=== PATIENT | female | born 1955 | race Caucasian/White ===

== ENCOUNTER 2018-07-18 06:33 | Observation (INO) ==
[2018-07-18] MEDS ORDERED: *HR* FentaNYL (PF) 100 MCG/2 ML VIAL IVP ONE ×2 (06:51→09:00)
[2018-07-18] MEDS ORDERED: Ondansetron 4 MG/2 ML VIAL IVP ONE (06:51)
--- NOTE | 2018-07-18 06:58 | Emergency Department Note ---
Disposition Clinical Impression: Biliary colic Cholelithiasis Qualifiers: Cholelithiasis location: gallbladder Cholecystitis presence: with cholecystitis Cholecystitis acuity: acute Biliary obstruction: without biliary obstruction Qualified Code(s): K80.00 - Calculus of gallbladder with acute cholecystitis without obstruction Disposition: Admitted As Inpatient Condition: Good Referrals: Trina Beatty MD [Primary Care Provider] - Forms: ED Satisfaction Letter, Work/School Release Time of Disposition: 09:15 General Adult HPI - General Chief complaint: ED Abdominal Pain Stated complaint: RUQ pain Time Seen by Provider: 07/18/18 06:38 Source: patient, family Mode of arrival: ambulatory Limitations: no limitations Nursing Notes Reviewed: Yes Vital Signs Reviewed: Yes - History of Present Illness HPI Narrative: Patient is a 63-year-old female that presents the emergency department due to pain in the right upper quadrant. Patient states this is been ongoing for pro ximally one week. Patient states that the pain is been intermittent. Patient states that it does seem to be made worse after she eats. Patient states that she has had some nausea but no vomiting. Patient states that she has dry heaves. Patient denies any diarrhea. Patient denies any blood in her stool or any urinary symptoms. Patient does state that she is having significant pain. Patient states that her pain is a 9-1/2 out of 10. Patient states that she has never had any previous abdominal surgeries. Patient states that she still has her gallbladder. Patient denies any fevers or chills. Pain Scale: 9 - Related Data Allergies Allergy/AdvReac Type Severity Reaction Status Date / Time silver sulfadiazine Allergy Blister Verified 09/19/15 09:32 [From Silvadene] Sulfa (Sulfonamide Allergy Rash Verified 09/19/15 09:33 Antibiotics) All systems ED: reviewed and negative except as stated. Constitutional: Denies: fever Cardiovascular: Reports: other (Chest tightness) Respiratory: Denies: dyspnea Gastrointestinal: Reports: abdominal pain, nausea. Denies: vomiting, diarrhea Genitourinary: Denies: urgency, dysuria, frequency, hematuria Past Medical History - Past Medical History Medical history: Reports: COPD, hypertension, thyroid disease Psychiatric history: Reports: no psych history - Social History Smoking Status: Current every day smoker Smokeless Tobacco Status: No Alcohol use: Reports: none Drug use: Reports: none Physical Exam - General Limitations: no limitations General appearance: alert, in no apparent distress - Head Head exam: atraumatic, normocephalic - Eye Eye exam: Present: normal appearance, EOMI - Neck Neck exam: Present: normal inspection, full ROM, trachea midline - Cardiovascular Cardiovascular exam: Present: regular rate, normal rhythm, normal heart sounds, +S1, +S2 - Abdominal Exam Abdominal exam: Present: soft, tenderness, normal bowel sounds, Cantu's sign Abdominal tenderness: Present: RUQ, epigastrium, moderate - Neurological Exam Neurological exam: Present: alert, oriented X3 - Psychiatric Psychiatric exam: Present: normal affect, normal mood - Skin Skin exam: Present: warm, dry, intact Course Vital Signs Temperature 98.1 F 07/18/18 06:34 Pulse Rate 70 07/18/18 06:34 Respiratory Rate 16 07/18/18 06:34 Blood Pressure 189/99 07/18/18 06:34 O2 Sat by Pulse Oximetry 98 07/18/18 06:34 Temperature 98.1 F 07/18/18 06:34 Pulse Rate 55 07/18/18 08:15 Respiratory Rate 16 07/18/18 08:15 Blood Pressure 124/81 07/18/18 08:15 O2 Sat by Pulse Oximetry 95 07/18/18 08:15 Oxygen Delivery Oxygen Delivery Room Air Medical Decision Making - [facility] Narrative Medical decision making narrative: Due the patient presented to the emergency department with right upper quadrant pain that is made worse by eating there is a high concern for gallbladder pathology. We will obtain basic laboratory testing as well as a right upper quadrant ultrasound to evaluate the gallbladder. Patient did report some chest tightness we will also obtain a EKG and a troponin. Patient's laboratory testing is unremarkable. EKG did not show any acute findings. The Other Right Upper Quadrant Did Show Evidence of Cholelithiasis with Questionable Pericholecystic Fluid and Equivocal Findings for Acute Cholecystitis. I Did Call and spoke with the on-call surgeon Dr. Cruz and she recommended that the patient be put on cefoxitin and be admitted to her service. Patient be started on the antibiotics here in the emergency department as well as provided additional analgesics and will be admitted to Dr. Cruz's service. Patient be admitted to the hospital this time for further evaluation and management. - Medical Records Medical records reviewed: Yes I reviewed the patient's medical records. - Lab Data Lab results reviewed: Yes I reviewed the patient's lab results. Result diagrams: 07/18/18 07:05 07/18/18 07:05 Lab Results 07/18/18 07/18/18 07/18/18 Range/Units 07:05 07:05 07:08 WBC 10.7 (4.3-11.1) K/mcL RBC 4.69 (3.82-4.97) M/mcL Hgb 14.4 (11.5-15.4) g/dL Hct 42.5 (35.3-44.9) % MCV 90.6 (83.0-100.0) fL MCH 30.7 (28.0-33.3) pg MCHC 33.9 (31.6-35.5) g/dL RDW 12.4 (11.5-14.5) % Plt Count 162 (140-400) K/mcL MPV 11.7 (9.4-12.4) fL Immature Gran % 0.3 (0-4) % Seg Neutrophils % 79.7 % Lymphocytes % 13.0 % Monocytes % 6.0 % Eosinophils % 0.7 % Basophils % 0.3 % Neutrophils # 8.6 (1.6-8.9) K/mcL Lymphocytes # 1.4 (0.6-4.6) K/mcL Monocytes # 0.6 (0.0-1.3) K/mcL Eosinophils # 0.1 (0.0-0.6) K/mcL Basophils # 0.0 (0.0-0.2) K/mcL Sodium 136 (136-145) mEq/L Potassium 3.6 (3.5-5.1) mEq/L Chloride 101 (98-107) mEq/L Carbon Dioxide 26 (23-29) mEq/L BUN 15 (8-23) mg/dL Creatinine 0.67 (0.60-1.20) mg/dL Est GFR ( Amer) > 60 (> 60) Est GFR (Non-Af Amer) > 60 (> 60) BUN/Creatinine Ratio 22 (6-26) Glucose 122 H (70-105) mg/dL Calculated Osmolality 284 (280-300) Calcium 10.1 (8.6-10.3) mg/dL Total Bilirubin 0.8 (0.3-1.0) mg/dL Direct Bilirubin 0.1 (0.0-0.2) mg/dL Indirect Bilirubin 0.7 (0.0-1.2) mg/dL AST 14 (13-39) Units/L ALT 14 (7-52) Units/L Alkaline Phosphatase 57 (34-104) Units/L Troponin I < 0.03 (< 0.04) ng/mL Serum Total Protein 7.0 (6.4-8.9) g/dL Albumin 4.5 (3.5-5.7) g/dL Globulin 2.5 (2.4-3.5) g/dL Albumin/Globulin Ratio 1.8 (1.1-2.2) Lipase 66 (11-82) Units/L Urine Color Yellow (Yellow) Urine Clarity Clear (Clear) Urine pH 6.0 (5.0-8.0) pH Units Ur Specific [place] 1.021 (1.010-1.025) Urine Protein Negative (Neg-Trace) mg/dL Urine Glucose (UA) Normal (Normal) mg/dL Urine Ketones Negative (Negative) mg/dL Urine Blood Negative (Negative) Urine Nitrite Negative (Negative) Urine Bilirubin Negative (Negative) Urine Urobilinogen Normal (Normal) mg/dL Ur Leukocyte Esterase Small H (Negative) Urine Microscopic RBC 3-5 H (0-3) per hpf Urine Microscopic WBC 3-5 H (0-3) per hpf Ur Squamous Epith Cells Many H (None-Few) per lpf Ur Renal Epithelial Cell Few (None-Few) per hpf Urine Bacteria None Seen (None-Few) per hpf Hyaline Casts None Seen (None-Few) per lpf Ur Culture Indicated? NO. A (NO) - Radiology Data Radiology results reviewed: Yes I reviewed the patient's radiology results. Gallbladder Ultrasound 07/18/18 06:53 IMPRESSION: Cholelithiasis with mild gallbladder wall thickening and possible pericholecystic fluid. There is a negative sonographic Cantu sign. These findings are equivocal for acute cholecystitis. Clinical correlation is advised. No evidence of biliary dilatation. D/ / 07/18/2018 08:33:37 Fantasma Tate MD / bcarter Interpreting Provider: Fantasma Tate MD - EKG Data EKG #1 EKG attestation: Yes I reviewed and interpreted this EKG. EKG results narrative: EKG shows a sinus rhythm at a rate of 55 bpm, VA interval of 163, QRS duration of 135, QTC of 474. There is no evidence of STEMI on EKG. There is evidence of a right bundle branch block. EKG was compared to previous on 09/07/14.
[2018-07-18 07:12] LABS: Basophils % 0.3 %; Eosinophils # 0.1 K/mcL (0.0-0.6); Eosinophils % 0.7 %; Hematocrit 42.5 % (35.3-44.9); Hemoglobin 14.4 g/dL (11.5-15.4); Immature Granulocytes % 0.3 % (0-4); Lymphocytes # 1.4 K/mcL (0.6-4.6); Mean Corpuscular HGB Conc 33.9 g/dL (31.6-35.5); Mean Corpuscular Hemoglobin 30.7 pg (28.0-33.3); Mean Corpuscular Volume 90.6 fL (83.0-100.0); Mean Platelet Volume 11.7 fL (9.4-12.4); Monocytes # 0.6 K/mcL (0.0-1.3); Neutrophils # 8.6 K/mcL (1.6-8.9); Platelet Count 162 K/mcL (140-400); Red Blood Count 4.69 M/mcL (3.82-4.97); Red Cell Distribution Width 12.4 % (11.5-14.5); Segmented Neutrophils % 79.7 %
--- NOTE | 2018-07-18 07:13 | Emergency Department Note ---
Disposition Clinical Impression: Biliary colic Disposition: Still a Patient Referrals: Trina Beatty MD [Primary Care Provider] - Forms: ED Satisfaction Letter, Work/School Release General Adult HPI - General Chief complaint: ED Abdominal Pain Stated complaint: RUQ pain Time Seen by Provider: 07/18/18 06:38 Source: patient, family Mode of arrival: ambulatory Limitations: no limitations - History of Present Illness HPI Narrative: ED ATTESTATION NOTE: I examined this patient and my medical decision-making was reviewed with the Resident Physician/LEAD JAVASCRIPT DEVELOPER/PA/Student. I have personally performed a face to face ev aluation on this patient & I agree with the documented findings, disposition and treatment plan as described except to the extent set forth below. Patient was seen with emergency medicine resident, Joesph Lovelace please see copy of his note for details of this encounter Briefly: 63-year-old female 3 days of postprandial right upper quadrant epigastric pain she does have positive Cantu sign cell a hypertensive but afebrile last vomiting episode was earlier today denies fevers chills or dysuria. Patient still has her gallbladder. Patient will get IV fentanyl IV fluids anti-medics screening labs and a right upper quadrant ultrasound. Her last meal was greater than 8 hours ago. Concerns about biliary colic versus possible acute cholecystitis. Disposition pending Pain Scale: 9 - Related Data Allergies Allergy/AdvReac Type Severity Reaction Status Date / Time silver sulfadiazine Allergy Blister Verified 09/19/15 09:32 [From Silvadene] Sulfa (Sulfonamide Allergy Rash Verified 09/19/15 09:33 Antibiotics) Constitutional: Denies: fever Cardiovascular: Reports: other (Chest tightness) Respiratory: Denies: dyspnea Gastrointestinal: Reports: abdominal pain, nausea. Denies: vomiting, diarrhea Genitourinary: Denies: urgency, dysuria, frequency, hematuria Past Medical History - Past Medical History Medical history: Reports: COPD, hypertension, thyroid disease Psychiatric history: Reports: no psych history - Social History Smoking Status: Current every day smoker Smokeless Tobacco Status: No Alcohol use: Reports: none Drug use: Reports: none Physical Exam - General Limitations: no limitations General appearance: alert, in no apparent distress Course Vital Signs Temperature 98.1 F 07/18/18 06:34 Pulse Rate 70 07/18/18 06:34 Respiratory Rate 16 07/18/18 06:34 Blood Pressure 189/99 07/18/18 06:34 O2 Sat by Pulse Oximetry 98 07/18/18 06:34 Temperature 98.1 F 07/18/18 06:34 Pulse Rate 70 07/18/18 06:34 Respiratory Rate 16 07/18/18 06:34 Blood Pressure 189/99 07/18/18 06:34 O2 Sat by Pulse Oximetry 98 07/18/18 06:34 Oxygen Delivery Oxygen Delivery Room Air
[2018-07-18 07:24] LABS: Bilirubin,Urine Negative (Negative); Blood,Urine Negative (Negative); Clarity,Urine Clear (Clear); Color,Urine Yellow (Yellow); Glucose,Urine (UA) Normal (Normal); Ketones,Urine Negative (Negative); Leukocyte Esterase,Urine Small (Negative); Nitrite,Urine Negative (Negative); Protein,Urine Negative (Neg-Trace); Specific Gravity,Urine 1.021 (1.010-1.025); Urobilinogen,Urine Normal (Normal)
[2018-07-18 07:25] LABS: Bacteria,Urine None Seen per hpf (None-Few); Hyaline Casts,Urine None Seen per lpf (None-Few); Squamous Epithelial Cell,Urine Many per lpf (None-Few)
[2018-07-18 07:37] LABS: Troponin I < 0.03 ng/mL (< 0.04)
[2018-07-18 07:40] LABS: Alanine Aminotransferase 14 Units/L (7-52); Albumin 4.5 g/dL (3.5-5.7); Albumin/Globulin Ratio 1.8 (1.1-2.2); Alkaline Phosphatase 57 Units/L (34-104); Aspartate Amino Transferase 14 Units/L (13-39); BUN/Creatinine Ratio 22 (6-26); Bilirubin,Direct 0.1 mg/dL (0.0-0.2); Bilirubin,Indirect 0.7 mg/dL (0.0-1.2); Bilirubin,Total 0.8 mg/dL (0.3-1.0); Blood Urea Nitrogen 15 mg/dL (8-23); Calcium 10.1 mg/dL (8.6-10.3); Carbon Dioxide 26 mEq/L (23-29); Chloride 101 mEq/L (98-107); Globulin 2.5 g/dL (2.4-3.5); Glucose 122 mg/dL (70-105); Lipase 66 Units/L (11-82); Osmolality,Calculated 284 (280-300); Potassium 3.6 mEq/L (3.5-5.1); Sodium 136 mEq/L (136-145); eGFR For Non-African Americans > 60 (> 60)
[2018-07-18 08:05] LABS: Renal Epithelial Cells,Urine Few per hpf (None-Few)
[2018-07-18] MEDS ORDERED: cefOXitin 2,000 MG in Water for inj. (sterile) 20 ML 20 ML IVP ONE (09:04)
[2018-07-18] MEDS ORDERED: OXYCODONE Oral CONC 10 MG/0.5 ML ORAL.SYG SL PRN (11:21)
[2018-07-18] MEDS ORDERED: Ondansetron 4 MG/2 ML VIAL IVP PRN (11:21)
[2018-07-18] MEDS ORDERED: *HR* Promethazine 25 MG/ML VIAL IVP PRN (11:21)
--- NOTE | 2018-07-18 11:38 | General Surg History&Physical ---
<ClintMeghan Glenda - Last Filed: 07/18/18 12:04> Date of Encounter: 07/18/18 Time of Encounter: 11:38 Assessment and Plan (1) Cholelithiasis Current Visit: Yes Status: Acute The assessment and plan as outlined above was discussed with the patient and/or family members who expressed understanding and agreement. All questions were answered. Ultrasound of the gallbladder on 07/18/2018 noted cholelithiasis with mild gallbladder wall thickening and possible Ricky cholecystic fluid. Negative sonographic Cantu sign. Findings felt policy services representative of acute cholecystitis. Common bile duct was normal at 5 mm Patient is recommended to undergo a laparoscopic cholecystectomy, possible open, possible intraoperative cholangiogram. Recommendations, risks, and benefits have been reviewed with the patient and a signed consent is placed on the hard chart. We will plan for surgical intervention in the next 24 to 48 hours Plan: NPO except meds IV fluids IV antibiotics supportive care and discomfort management G.I. and DVT prophylaxis repeat a.m. labs serial abdominal exams Qualifiers: Cholelithiasis location: gallbladder Cholecystitis presence: with cholecystitis Cholecystitis acuity: acute Biliary obstruction: without biliary obstruction Qualified Code(s): K80.00 - Calculus of gallbladder with acute cholecystitis without obstruction (2) COPD (chronic obstructive pulmonary disease) Current Visit: Yes Status: Acute The assessment and plan as outlined above was discussed with the patient and/or family members who expressed understanding and agreement. All questions were answered. Scheduled duonebs Begin incentive spirometry now Smoking cessation Qualifiers: COPD type: unspecified COPD Qualified Code(s): J44.9 - Chronic obstructive pulmonary disease, unspecified (3) HTN, goal below 130/80 Current Visit: Yes Status: Acute The assessment and plan as outlined above was discussed with the patient and/or family members who expressed understanding and agreement. All questions were answered. Continue home po meds History of Present Illness Chief complaint: right uper abdominal pain HPI: Ms. Duffy is a 63 year old female who presented on 07/18/2018 with complaints of abrupt onset of right upper quadrant pain. She reports this is the 3rd episode in 3 weeks. She states the abdominal pain is always abrupt onset, is sharp, stabbing, and aching. She relates that as a 10 out of 10. She associates the discomfort with fatty foods. She reports that she at "[employer]" last night and pizza the day previous and then began having the abdominal pain and nausea without vomiting. She denies fever, chills, headache, dizz iness, lightheadedness, changes in bowel habits, black, bloody, or tarry stool, urinary signs or symptoms. She endorses associated chest tightness that only happens when she has abdominal discomfort and nausea as described. She denies any alleviating factors. Past Med Surg Social Fam HX - Past Medical History Source: patient Medical history: COPD (Does not use in an inhaler), hypertension, thyroid dise ase Psychiatric history: no psych history - Past Surgical History Additional surgical history: vocal cord polypectomy, DNC - Social History Smoking Status: Current every day smoker Packs per day: One pack per day for 45 years Smokeless Tobacco Status: No Alcohol use: none Drug use: none Occupational status: employed ([employer]) Current living situation: Home - Independent Activity Level: Independent ambulation Recent Out of Country Travel Within the Last 8 Weeks: No Exposure or Possible Exposure to Illness During Travel: No Medications and Allergies Ibuprofen [Ibu] 800 mg PO Q8H PRN 07/18/18 [History] Levothyroxine [Synthroid] 125 mcg PO QAM 07/18/18 [History] Lisinopril/Hydrochlorothiazide [Zestoretic 20-25 mg Tablet] 1 tab PO DAILY 07/18/18 [History] Oxybutynin Chloride [Ditropan Xl] 5 mg PO DAILY 07/18/18 [History] RX: Atenolol 100 mg PO DAILY 07/18/18 [History] Allergy/AdvReac Type Severity Reaction Status Date / Time silver sulfadiazine Allergy Blister Verified 07/18/18 09:42 [From Silvadene] Sulfa (Sulfonamide Allergy Rash Verified 07/18/18 09:42 Antibiotics) Review of Systems All systems PM: reviewed and no additional remarkable complaints except as stated All systems PM: The remainder of the systems were reviewed and are negative General Surgery Exam Initial Vital Signs Temp Pulse Resp BP Pulse Ox 98.1 F 70 16 189/99 98 07/18/18 06:34 07/18/18 06:34 07/18/18 06:34 07/18/18 06:34 07/18/18 06:34 VITAL SIGNS: Reviewed. See [facility] GENERAL: In no apparent distress. HEENT: Normocephalic, atraumatic, pupils are equal and reactive, extraocular mo tions intact, oropharynx is pink and moist, there is no neck adenopathy or JVD noted. CHEST/RESPIRATORY: The thorax is free from signs of trauma. Lung sounds: decreased, normal respiratory effort CARDIAC: Regular rate and rhythm. Normal S1 and S2, without murmurs, gallops, or rubs. VASCULAR: No Edema. 2+ peripheral pulses. ABDOMEN: soft, right upper quadrant tenderness, active bowel sounds MUSCULOSKELETAL: Good range of motion of all major joints. Extremities without clubbing, cyanosis or edema. NEUROLOGIC EXAM: Alert and oriented x 3. Speech normal. Follows commands. PSYCHIATRIC: Mood normal. SKIN: No rash or lesions. Results - Labs 07/18/18 07:05 07/18/18 07:05 Abnormal lab results Glucose 122 mg/dL (70-105) H 07/18/18 07:05 Ur Leukocyte Esterase Small (Negative) H 07/18/18 07:08 Urine Microscopic RBC 3-5 per hpf (0-3) H 07/18/18 07:08 Urine Microscopic WBC 3-5 per hpf (0-3) H 07/18/18 07:08 Ur Squamous Epith Cells Many per lpf (None-Few) H 07/18/18 07:08 Ur Culture Indicated? NO. (NO) A 07/18/18 07:08 Diabetes panel 07/18/18 Range/Units 07:05 Sodium 136 (136-145) mEq/L Potassium 3.6 (3.5-5.1) mEq/L Chloride 101 (98-107) mEq/L Carbon Dioxide 26 (23-29) mEq/L BUN 15 (8-23) mg/dL Creatinine 0.67 (0.60-1.20) mg/dL Glucose 122 H (70-105) mg/dL Calcium 10.1 (8.6-10.3) mg/dL AST 14 (13-39) Units/L ALT 14 (7-52) Units/L Alkaline Phosphatase 57 (34-104) Units/L Albumin 4.5 (3.5-5.7) g/dL Calcium panel 07/18/18 Range/Units 07:05 Calcium 10.1 (8.6-10.3) mg/dL Albumin 4.5 (3.5-5.7) g/dL Pituitary panel 07/18/18 Range/Units 07:05 Sodium 136 (136-145) mEq/L Potassium 3.6 (3.5-5.1) mEq/L Chloride 101 (98-107) mEq/L Carbon Dioxide 26 (23-29) mEq/L BUN 15 (8-23) mg/dL Creatinine 0.67 (0.60-1.20) mg/dL Glucose 122 H (70-105) mg/dL Calcium 10.1 (8.6-10.3) mg/dL Adrenal panel 07/18/18 Range/Units 07:05 Sodium 136 (136-145) mEq/L Potassium 3.6 (3.5-5.1) mEq/L Chloride 101 (98-107) mEq/L Carbon Dioxide 26 (23-29) mEq/L BUN 15 (8-23) mg/dL Creatinine 0.67 (0.60-1.20) mg/dL Glucose 122 H (70-105) mg/dL Calcium 10.1 (8.6-10.3) mg/dL Total Bilirubin 0.8 (0.3-1.0) mg/dL AST 14 (13-39) Units/L ALT 14 (7-52) Units/L Alkaline Phosphatase 57 (34-104) Units/L Albumin 4.5 (3.5-5.7) g/dL All other labs normal. - Imaging US - abdomen: report reviewed <Meche Cruz - Last Filed: 07/18/18 21:01> Date of Encounter: 07/18/18 Assessment and Plan (1) Cholelithiasis Current Visit: Yes Status: Acute The assessment and plan as outlined above was discussed with the patient and/or family members who expressed understanding and agreement. All questions were answered. discussed with patient the US results, labs and her PE findings. She may well have acute cholecystitis. She for sure has symptomatic cholelithiasis. Will plan laparoscopic cholecystectomy, possible cholangiograms, possible open. Risks and benefits discussed and she wishes to proceed npo at 8 am tomorrow iv antibiotics prn pain control agree with COMPOSITION INSTRUCTOR assessment and plan Qualifiers: Cholelithiasis location: gallbladder Cholecystitis presence: with cholecystitis Cholecystitis acuity: acute Biliary obstruction: without biliary obstruction Qualified Code(s): K80.00 - Calculus of gallbladder with acute cholecystitis without obstruction (2) COPD (chronic obstructive pulmonary disease) Current Visit: Yes Status: Acute The assessment and plan as outlined above was discussed with the patient and/or family members who expressed understanding and agreement. All questions were answered. Qualifiers: COPD type: unspecified COPD Qualified Code(s): J44.9 - Chronic obstructive pulmonary disease, unspecified (3) HTN, goal below 130/80 Current Visit: Yes Status: Acute The assessment and plan as outlined above was discussed with the patient and/or family members who expressed understanding and agreement. All questions were a nswered. History of Present Illness Chief complaint: right upper abdominal pain HPI: Ms. Duffy is a 63 year old female with three episodes in the last few weeks of right upper quadrant pain. She has [employer] food last night and pain began last evening. She has nausea and no emesis. No diarrhea. No fevers or chills. Pain doesnt radiate into back or shoulder. She feels better now but still has some pain. Past Med Surg Social Fam HX - Family History Mother Family Member Ethnicity: Non- Living Status: Hx Family Cancer: Yes Hx Family GI Disorders: Yes Father Family Member Ethnicity: Non- Living Status: Hx Family Cardiac Disorders: Yes Review of Systems All systems PM: reviewed and no additional remarkable complaints except as stated All systems PM: The remainder of the systems were reviewed and are negative General Surgery Exam Initial Vital Signs Temp Pulse Resp BP Pulse Ox 98.1 F 70 16 189/99 98 07/18/18 06:34 07/18/18 06:34 07/18/18 06:34 07/18/18 06:34 07/18/18 06:34 - General physical appearance well developed, well nourished, no distress - Eyes PERRL, normal ocular movement - ENT normal mucosa, normocephalic - Neck trachea midline - Respiratory normal expansion, normal respiratory effort - Cardiovascular Cardiovascular exam: Present: RRR - Abdomen Abdomen general surgery: Present: bowel sounds present, soft, tender. Absent: distended, guarding, rebound Abdominal Tenderness: Present: RUQ - Integumentary Integumentary general surgery: Present: warm and dry, no abnormal pigmentation - Neurologic Present: CN 2-12 grossly intact - Musculoskeletal Present: normal posture - Psychiatric Psychiatric general surgery: Present: A&Ox3, speech is normal Results - Labs 07/18/18 07:05 07/18/18 07:05 Abnormal lab results Glucose 122 mg/dL (70-105) H 07/18/18 07:05 POC Glucose 100 mg/dL (70-99) H 07/18/18 18:36 Ur Leukocyte Esterase Small (Negative) H 07/18/18 07:08 Urine Microscopic RBC 3-5 per hpf (0-3) H 07/18/18 07:08 Urine Microscopic WBC 3-5 per hpf (0-3) H 07/18/18 07:08 Ur Squamous Epith Cells Many per lpf (None-Few) H 07/18/18 07:08 Ur Culture Indicated? NO. (NO) A 07/18/18 07:08 Diabetes panel 07/18/18 Range/Units 07:05 Sodium 136 (136-145) mEq/L Potassium 3.6 (3.5-5.1) mEq/L Chloride 101 (98-107) mEq/L Carbon Dioxide 26 (23-29) mEq/L BUN 15 (8-23) mg/dL Creatinine 0.67 (0.60-1.20) mg/dL Glucose 122 H (70-105) mg/dL Calcium 10.1 (8.6-10.3) mg/dL AST 14 (13-39) Units/L ALT 14 (7-52) Units/L Alkaline Phosphatase 57 (34-104) Units/L Albumin 4.5 (3.5-5.7) g/dL Calcium panel 07/18/18 Range/Units 07:05 Calcium 10.1 (8.6-10.3) mg/dL Albumin 4.5 (3.5-5.7) g/dL Pituitary panel 07/18/18 Range/Units 07:05 Sodium 136 (136-145) mEq/L Potassium 3.6 (3.5-5.1) mEq/L Chloride 101 (98-107) mEq/L Carbon Dioxide 26 (23-29) mEq/L BUN 15 (8-23) mg/dL Creatinine 0.67 (0.60-1.20) mg/dL Glucose 122 H (70-105) mg/dL Calcium 10.1 (8.6-10.3) mg/dL Adrenal panel 07/18/18 Range/Units 07:05 Sodium 136 (136-145) mEq/L Potassium 3.6 (3.5-5.1) mEq/L Chloride 101 (98-107) mEq/L Carbon Dioxide 26 (23-29) mEq/L BUN 15 (8-23) mg/dL Creatinine 0.67 (0.60-1.20) mg/dL Glucose 122 H (70-105) mg/dL Calcium 10.1 (8.6-10.3) mg/dL Total Bilirubin 0.8 (0.3-1.0) mg/dL AST 14 (13-39) Units/L ALT 14 (7-52) Units/L Alkaline Phosphatase 57 (34-104) Units/L Albumin 4.5 (3.5-5.7) g/dL All other labs normal. - Imaging US - abdomen: report reviewed - Attending Attestation I have personally performed a face to face evaluation on this patient. I have reviewed and agree with the care plan. History and Exam by me shows:
[2018-07-18] MEDS: 0.9 % Sodium Chloride 1,000 ML IVC SCH ×2 (12:32→20:47)
[2018-07-18] MEDS: Piperacillin/Tazobactam 3.375 GM in 0.9 % Sodium Chloride Mini Bag 100 ML IVPB SCH ×2 (12:34→20:17)
[2018-07-18] MEDS: Pantoprazole 40 MG VIAL IVP SCH (12:35)
[2018-07-18] MEDS: OXYCODONE Oral CONC 10 MG/0.5 ML ORAL.SYG SL PRN ×2 (13:09→23:38)
--- NOTE | 2018-07-18 13:39 | Electrocardiograph Report ---
[facility] [employer] Test Date: 2018-07-18 Pat Name: Leana Duffy Department: EXAM3 Room: 3B64 Gender: F Systems Coordinator: : 1955 Requested By: Joesph Lovelace Order Number: [id number] Reading MD: Henrique Swenson Measurements Intervals [place] Rate: 55 P: 67 FL: 163 QRS: 81 QRSD: 135 T: -5 QT: 495 QTc: 474 Interpretive Statements Sinus rhythm Right bundle branch block Electronically Signed On 07-18-2018 13:38:41 EST by Henrique Swenson
[2018-07-18 13:51] LABS: Activated Partial Thrombo Time 30.2 Seconds (26.0-36.0)
[2018-07-18] MEDS: Ipratropium/Albuterol Neb 3 ML IH SCH ×3 (15:19→22:56)
--- NOTE | 2018-07-18 19:08 | Anesthesia Evaluation PreOp ---
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 HX Other Medical History: Thyroid Anesthesia History: No Prior Anesthetic Complications, Past Anesthesia Alcohol Use: none Drug use: none Medications and Allergies Atenolol 100 mg PO DAILY 07/18/18 [History] Ibuprofen [Ibu] 800 mg PO Q8H PRN 07/18/18 [History] Levothyroxine [Synthroid] 125 mcg PO QAM 07/18/18 [History] Lisinopril/Hydrochlorothiazide [Zestoretic 20-25 mg Tablet] 1 tab PO DAILY 07/18/18 [History] Oxybutynin Chloride [Ditropan Xl] 5 mg PO DAILY 07/18/18 [History] Allergy/AdvReac Type Severity Reaction Status Date / Time silver sulfadiazine Allergy Blister Verified 07/18/18 09:42 [From Silvadene] Sulfa (Sulfonamide Allergy Rash Verified 07/18/18 09:42 Antibiotics) - Meds/Allergy Pre-op Review Medications Reviewed: Yes Allergies Reviewed: Yes Beta Blockers on Current Med List: Yes Anesthesia Results - Labs 07/18/18 07:05 07/18/18 07:05 - Imaging EKG: report reviewed (Sinus rhythm Right bundle branch block) Anesthesia Exam Vital Signs/O2 Sat, Most Current Temp Pulse Resp BP Pulse Ox 99.1 F 67 16 163/78 95 07/18/18 18:37 07/18/18 18:37 07/18/18 18:37 07/18/18 18:37 07/18/18 18:37 Weight: 81 KG - BMI 29 NPO (# of Hours): NPO >8 - HEENT Mallampati: II Teeth: Edentulous Oral Opening: Greater than 3 - Cardiac Rhythm: Regular - Pulmonary Breath Sounds: bilateral Clear Respiratory Effort: Symmetrical Anesthesia Assess/Plan ASA Score: 3 Anesthetic Plan: General Monitoring Plan: Standard Monitors Recovery Plan: PACU
[2018-07-19] MEDS: Ipratropium/Albuterol Neb 3 ML IH SCH ×4 (03:52→22:25)
[2018-07-19 03:53] LABS: Basophils % 0.5 %; Eosinophils # 0.1 K/mcL (0.0-0.6); Eosinophils % 0.6 %; Hematocrit 34.8 % (35.3-44.9); Immature Granulocytes % 0.2 % (0-4); Lymphocytes # 1.7 K/mcL (0.6-4.6); Lymphocytes % 20.3 %; Mean Corpuscular HGB Conc 33.3 g/dL (31.6-35.5); Mean Corpuscular Hemoglobin 30.8 pg (28.0-33.3); Mean Corpuscular Volume 92.3 fL (83.0-100.0); Mean Platelet Volume 12.1 fL (9.4-12.4); Monocytes # 0.8 K/mcL (0.0-1.3); Monocytes % 10.2 %; Neutrophils # 5.6 K/mcL (1.6-8.9); Platelet Count 119 K/mcL (140-400); Red Blood Count 3.77 M/mcL (3.82-4.97); Red Cell Distribution Width 12.8 % (11.5-14.5); Segmented Neutrophils % 68.2 %
[2018-07-19 03:59] LABS: Hemoglobin 11.6 g/dL (11.5-15.4)
[2018-07-19 04:13] LABS: BUN/Creatinine Ratio 16 (6-26); Blood Urea Nitrogen 10 mg/dL (8-23); Calcium 8.6 mg/dL (8.6-10.3); Carbon Dioxide 29 mEq/L (23-29); Chloride 107 mEq/L (98-107); Glucose 103 mg/dL (70-105); Osmolality,Calculated 289 (280-300); Potassium 3.3 mEq/L (3.5-5.1); Sodium 140 mEq/L (136-145); eGFR For Non-African Americans > 60 (> 60)
[2018-07-19] MEDS: Piperacillin/Tazobactam 3.375 GM in 0.9 % Sodium Chloride Mini Bag 100 ML IVPB SCH ×2 (04:15→12:50)
[2018-07-19] MEDS: 0.9 % Sodium Chloride 1,000 ML IVC SCH ×3 (05:07→20:00)
[2018-07-19] MEDS: Pantoprazole 40 MG VIAL IVP SCH (09:12)
[2018-07-19] MEDS ORDERED: *HR* Propofol 200 MG/20 ML VIAL IVP ONE (16:21)
[2018-07-19] MEDS ORDERED: *HR* Rocuronium Bromide 50 MG/5 ML VIAL ONE (16:21)
[2018-07-19] MEDS ORDERED: Lidocaine -MPF 2% 2 ML VIAL ONE (16:21)
[2018-07-19] MEDS ORDERED: *HR* Midazolam HCl 2 MG/2 ML VIAL ONE (16:21)
[2018-07-19] MEDS ORDERED: Dexamethasone 4 MG/ML VIAL ONE (16:21)
[2018-07-19] MEDS ORDERED: *HR* FentaNYL (PF) 100 MCG/2 ML VIAL ONE ×2 (16:21→18:21)
[2018-07-19] MEDS ORDERED: Ondansetron 4 MG/2 ML VIAL ONE (16:21)
[2018-07-19] MEDS ORDERED: Neostigmine Methylsulfate 3 MG/3 ML SYRINGE ONE (16:22)
[2018-07-19] MEDS ORDERED: Lidocaine -MPF 4% 5 ML AMPUL ONE (16:27)
[2018-07-19] MEDS ORDERED: Isovue-300 50 ML VIAL IVP ONE (16:34)
[2018-07-19] MEDS ORDERED: *HR* Labetalol 20 MG/4 ML SYRINGE IVP PRN (16:59)
[2018-07-19] MEDS ORDERED: *HR* OxyCODONE Immed Rel 5 MG TABLET PO PRN (16:59)
[2018-07-19] MEDS ORDERED: Ketorolac 30 MG/ML VIAL ONE (17:29)
--- NOTE | 2018-07-19 18:31 | Operative Note ---
Date of procedure: 07/19/18 Pre-op diagnosis: acute cholecystitis Post-op diagnosis: same Procedure: Laparoscopic cholecystectomy Complications: none immediate Anesthesia: DEB local Surgeon: Meche Cruz Was there an critical care physician assistant present: Yes Agency Sales Representative: Katerina Hollis Estimated blood loss (cc): 40 Specimen: gallbladder and contents Condition: stable Disposition: PACU Procedure in Detail: The patient was brought into the operating suite and placed supine on the operating table. Sign-in was performed and everyone was in agreement. Anesthesia was induced and patient was endotracheally intubated by anesthesia without incident and they also placed an OG tube. The abdomen was prepped and draped in the usual sterile fashion. A timeout was performed again everyone was in agreement. A supraumbilical incision was made through the skin into the subcutaneous tissue with an 11 blade. Towel clamps were placed on either side of the umbilicus for retraction. S retractors were used to dissect down to the anterior abdominal wall linea alba fascia. A Veress needle was placed through this incision and a water drop test confirmed placement and the abdomen was insufflated. The abdomen was entered with a 5 mm 0 degree laparoscope on a 5 mm X-katie trocar. The area and entry was visualized was no bleeding and no apparent bowel injury. A 5 mm subxiphoid port was placed under direct visualization after first incising the skin with an 11 blade. A right upper quadrant subcostal position midclavicular line 5 mm port was placed under direct visualization after first incising skin with 11 blade. The laparoscope was placed in this and we exchanged the supraumbilical port for a 12 mm port under direct visualization. The last 5 mm port was placed in the right upper quadrant subcostal position anterior axillary line after first incising the skin with an 11 blade. The patient was placed in steep reverse Trendelenburg left side down position. The gallbladder was significantly inflamed and tense. 40 mL of bile was aspirated from the gallbladder with the laparoscopic aspirator. The dome of the gallbladder was grasped and retracted cephalad. The infundibulum was grasped and retracted laterally. Using the [place] we dissected out the cystic duct and cystic artery. Two 5 mm hemoclips were placed distally on the cystic duct one proximally and it was transected with curved scissors. The cystic artery wa s doubly clipped proximally, once distally and transected with curved scissors. The gallbladder was removed off the cystic plate with the Bovie. Due to the intense inflammation there was oozing at the gallbladder fossa. Any bleeding points were stopped with the Bovie. A large Surgicel was placed at the gallbladder fossa. A 19-M[place] Wilman drain was placed through the right lateralmost incision underneath the liver at the gallbladder fossa. The Wilman drain was secured to the skin with a 2-0 silk stitch. The gallbladder was placed in a laparoscopic Endo Catch bag and removed via the supraumbilical incision site. The inferior edge of the liver was bluntly retracted cephalad and the cystic plate was copiously irrigated with sterile saline. There was no bleeding or apparent bile leak from the cystic plate and the clips on the cystic artery and duct were intact. All irrigation was suctioned free from the abdomen. All insufflation was suctioned free from the abdomen and the ports re moved. The abdominal wall at the supraumbilical incision site was closed with two 0 Vicryl [id number] stitches. 30 mL of 0.5% Marcaine was injected subcutaneously at the 4 port sites. The skin at the three 5 mm port sites were closed with 4-0 Monocryl interrupted subcuticular stitches. The skin at the supraumbilical incision site was closed with a 4-0 Monocryl running subcuticular stitch. Steri-Strips were applied to all wounds. The patient was awoken in the operating suite having tolerated the procedure well and were taken to PACU in stable condition after all lap and instrument counts were correct at the end of the case.
[2018-07-19] MEDS: *HR* HYDROmorphone (PF) 1 MG/ML SYRINGE IVP PRN ×2 (18:33→18:43)
--- NOTE | 2018-07-19 19:04 | Anesthesia Evaluation Post Op ---
Date of Encounter: 07/19/18 Time of Encounter: 19:02 - Vital Signs Vital Signs: Vital Signs/O2 Sat, Most Current Temp Pulse Resp BP Pulse Ox 98.6 F 57 16 125/64 92 07/19/18 18:56 07/19/18 18:56 07/19/18 18:56 07/19/18 18:56 07/19/18 18:56 - Lungs Lungs: Clear Ascult./Percussion - Airway Airway: Non-obstructed - Cardiovascular Regular Rate - Mental Status Mental Status: Asleep with brisk response to light stimulation - Pain Pain Scale: 7 Pain Scale used: Numeric (1 - 10) - Nausea Vomiting Nausea Vomiting: Not Present - Hydration Hydration: Ice chips, Has not voided - Discharge PostOp Status: Transfer Patient to floor
[2018-07-19] MEDS ORDERED: OXYCODONE Oral CONC 10 MG/0.5 ML ORAL.SYG SL PRN (19:08)
[2018-07-19] MEDS ORDERED: Ondansetron 4 MG/2 ML VIAL IVP PRN (19:08)
[2018-07-19] MEDS ORDERED: *HR* Promethazine 25 MG/ML VIAL IVP PRN (19:08)
[2018-07-20] MEDS: *HR* OxyCODONE/APAP 5/325 TABLET PO PRN ×3 (02:44→11:52)
[2018-07-20] MEDS: Ipratropium/Albuterol Neb 3 ML IH SCH ×2 (04:22→10:50)
[2018-07-20 05:40] LABS: Basophils % 0.2 %; Hemoglobin 11.7 g/dL (11.5-15.4); Immature Granulocytes % 0.3 % (0-4); Lymphocytes % 11.6 %; Mean Corpuscular HGB Conc 33.4 g/dL (31.6-35.5); Mean Corpuscular Volume 92.8 fL (83.0-100.0); Mean Platelet Volume 11.9 fL (9.4-12.4); Monocytes # 0.8 K/mcL (0.0-1.3); Monocytes % 8.6 %; Neutrophils # 7.1 K/mcL (1.6-8.9); Platelet Count 106 K/mcL (140-400); Red Blood Count 3.77 M/mcL (3.82-4.97); Red Cell Distribution Width 12.4 % (11.5-14.5); Segmented Neutrophils % 79.3 %
[2018-07-20 06:01] LABS: Alanine Aminotransferase 30 Units/L (7-52); Albumin 3.4 g/dL (3.5-5.7); Albumin/Globulin Ratio 1.6 (1.1-2.2); Alkaline Phosphatase 50 Units/L (34-104); Aspartate Amino Transferase 29 Units/L (13-39); BUN/Creatinine Ratio 23 (6-26); Bilirubin,Direct 0.2 mg/dL (0.0-0.2); Bilirubin,Indirect 0.7 mg/dL (0.0-1.2); Bilirubin,Total 0.9 mg/dL (0.3-1.0); Blood Urea Nitrogen 12 mg/dL (8-23); Calcium 8.8 mg/dL (8.6-10.3); Carbon Dioxide 26 mEq/L (23-29); Chloride 103 mEq/L (98-107); Globulin 2.1 g/dL (2.4-3.5); Glucose 101 mg/dL (70-105); Osmolality,Calculated 280 (280-300); Potassium 3.3 mEq/L (3.5-5.1); Sodium 135 mEq/L (136-145); Total Protein 5.5 g/dL (6.4-8.9); eGFR For Non-African Americans > 60 (> 60)
[2018-07-20 06:44] VITALS: BP 131/70
[2018-07-20] MEDS: 0.9 % Sodium Chloride 1,000 ML IVC SCH (08:16)
[2018-07-20] MEDS ORDERED: Pantoprazole 40 MG VIAL IVP SCH (09:00)
[2018-07-20] MEDS ORDERED: Ibuprofen 800 MG TABLET PO ONE (10:19)
--- NOTE | 2018-07-20 10:25 | Discharge Summary ---
Date of Encounter: 07/20/18 Time of Encounter: 10:26 - Discharge Diagnosis (1) Cholelithiasis Priority: Primary Status: Resolved Qualifiers: Cholelithiasis location: gallbladder Cholecystitis presence: with cholecystitis Cholecystitis acuity: acute Biliary obstruction: without biliary obstruction Qualified Code(s): K80.00 - Calculus of gallbladder with acute cholecystitis without obstruction (2) COPD (chronic obstructive pulmonary disease) Priority: Secondary Status: Chronic Qualifiers: COPD type: unspecified COPD Qualified Code(s): J44.9 - Chronic obstructive pulmonary disease, unspecified (3) HTN, goal below 130/80 Priority: Secondary Status: Chronic General Surgery Exam Initial Vital Signs Temp Pulse Resp BP Pulse Ox 98.1 F 70 16 189/99 98 07/18/18 06:34 07/18/18 06:34 07/18/18 06:34 07/18/18 06:34 07/18/18 06:34 Vital Signs Temp Pulse Resp BP Pulse Ox 07/20/18 06:32 98.1 F 56 18 131/70 95 07/20/18 04:22 18 95 07/20/18 03:17 98.1 F 56 16 118/69 85 07/20/18 02:38 154/71 07/19/18 23:33 97.8 F 62 16 100/56 98 07/19/18 22:25 18 98 07/19/18 21:30 98.0 F 52 18 125/65 94 07/19/18 20:01 98.2 F 64 17 143/76 07/19/18 19:30 98.1 F 57 17 132/69 96 07/19/18 18:56 98.6 F 57 16 125/64 92 07/19/18 18:46 57 16 136/60 93 07/19/18 18:36 57 16 141/61 94 07/19/18 18:26 99.2 F 63 16 146/97 95 07/19/18 12:45 99.7 F H 66 17 158/78 95 07/19/18 10:53 17 98 Intake and Output 07/19/18 07/20/18 07/20/18 23:59 07:59 15:59 Output Total 210 / 210 25 / 25 20 / 20 Balance -210 / -210 -25 / -25 -20 / -20 Output: Estimated Blood Loss 40 / 40 Wound Drainage 170 / 170 20 / 20 Right Upper Abdomen 75 / 75 20 Other: # Voids 1 Blood Glucose* 121 94 VITAL SIGNS: Reviewed. See [facility] GENERAL: In no apparent distress. HEENT: Normocephalic, atraumatic, pupils are equal and reactive, extraocular motions intact, oropharynx is pink and moist, there is no neck adenopathy or JVD noted. CHEST/RESPIRATORY: The thorax is free from signs of trauma. Lung sounds: clear to auscultation, normal respiratory effort CARDIAC: Regular rate and rhythm. Normal S1 and S2, without murmurs, gallops, or rubs. VASCULAR: No Edema. 2+ peripheral pulses. ABDOMEN: soft, expected postoperative tenderness, hypoactive bowel sounds INCISION: Surgical incision is clean, dry, and intact. There are no signs of cellulitis or infection noted. WOUNDS/DRAINS: right BLAS drain site is grossly within normal limits. There is a small amount of serous sanguineous drainage MUSCULOSKELETAL: Good range of motion of all major joints. Extremities without clubbing, cyanosis or edema. NEUROLOGIC EXAM: Alert and oriented x 3. Speech normal. Follows commands. PSYCHIATRIC: Mood normal. SKIN: No rash or lesions. - Hospital Course Hospital course: Ms. Duffy is a 63 year old female who presented on 07/18/2018 for a three-week history of right upper quadrant pain. Her exam and imaging were consistent with cholelithiasis with acute cholecystitis. She was taken to the operating room on 07/19/2018 where she underwent an uncomplicated laparoscopic cholecystectomy by Dr. Cruz. Per the operative note she did have some an area that was inflamed and tense. Followed by some losing at the gallbladder fossa. The bleeding points were stopped with the Bovie. A 19 [place] Wilman drain was placed. Her postoperative course has been unremarkable. She is ambulating and voiding without difficulty, tolerating a diet without nausea and vomiting, vital signs are stable, and she is afebrile. Her states he will be able to take care for BLAS drain at home. We will begin discharge planning to home with a follow-up in the office in one week. Time spent discussing smoking cessation with patient: 3 to 10 minutes - Time Spent with Patient Total time spent providing and/or coordinating discharge services: - Discharge Medications Prescriptions: Ondansetron ODT [Zofran ODT] 4 mg SL Q4HR PRN #30 tab.rapdis PRN Reason: Nausea RX: OxyCODONE/APAP 5/325 [Percocet 5/325 MG] 1 each PO Q6HR PRN 7 Days #28 tablet PRN Reason: Pain Amoxicillin/Clavulanate [Augmentin] 875 mg PO BIDWM 14 Days #28 tablet Docusate Sodium [Colace] 100 mg PO BID PRN #30 capsule PRN Reason: Constipation Home Medications: RX: Atenolol 100 mg PO DAILY 07/18/18 [History] RX: Ibuprofen [Ibu] 800 mg PO Q8H PRN 07/18/18 [History] RX: Levothyroxine [Synthroid] 125 mcg PO QAM 07/18/18 [History] RX: Lisinopril/Hydrochlorothiazide [Zestoretic 20-25 mg Tablet] 1 tab PO DAILY 07/18/18 [History] RX: Oxybutynin Chloride [Ditropan Xl] 5 mg PO DAILY 07/18/18 [History] Amoxicillin/Clavulanate [Augmentin] 875 mg PO BIDWM 14 Days #28 tablet 07/20/18 [Rx] Docusate Sodium [Colace] 100 mg PO BID PRN #30 capsule 07/20/18 [Rx] Ondansetron ODT [Zofran ODT] 4 mg SL Q4HR PRN #30 tab.rapdis 07/20/18 [Rx] RX: OxyCODONE/APAP 5/325 [Percocet 5/325 MG] 1 each PO Q6HR PRN 7 Days #28 tablet 07/20/18 [Rx] Allergies/Adverse Reactions: Allergy/AdvReac Type Severity Reaction Status Date / Time silver sulfadiazine Allergy Blister Verified 07/18/18 09:42 [From Silvadene] Sulfa (Sulfonamide Allergy Rash Verified 07/18/18 09:42 Antibiotics) Date of admission: 07/18/18 09:23 Primary care physician: Trina Beatty MD Discharging clinician: Meghan Jaramillo Anticipated date of discharge: 07/20/18 Labs on day of discharge: Labs from last 24 hours 07/20/18 07/20/18 07/19/18 05:22 05:22 19:56 WBC 9.0 RBC 3.77 L Hgb 11.7 Hct 35.0 L MCV 92.8 MCH 31.0 MCHC 33.4 RDW 12.4 Plt Count 106 L MPV 11.9 Immature Gran % 0.3 Seg Neutrophils % 79.3 Lymphocytes % 11.6 Monocytes % 8.6 Eosinophils % 0.0 Basophils % 0.2 Neutrophils # 7.1 Lymphocytes # 1.0 Monocytes # 0.8 Eosinophils # 0.0 Basophils # 0.0 Sodium 135 L Potassium 3.3 L Chloride 103 Carbon Dioxide 26 BUN 12 Creatinine 0.53 L Est GFR ( Amer) > 60 Est GFR (Non-Af Amer) > 60 BUN/Creatinine Ratio 23 Glucose 101 POC Glucose 121 H Calculated Osmolality 280 Calcium 8.8 Total Bilirubin 0.9 Direct Bilirubin 0.2 Indirect Bilirubin 0.7 AST 29 ALT 30 Alkaline Phosphatase 50 Serum Total Protein 5.5 L Albumin 3.4 L Globulin 2.1 L Albumin/Globulin Ratio 1.6 07/19/18 07/19/18 12:47 05:58 WBC RBC Hgb Hct MCV MCH MCHC RDW Plt Count MPV Immature Gran % Seg Neutrophils % Lymphocytes % Monocytes % Eosinophils % Basophils % Neutrophils # Lymphocytes # Monocytes # Eosinophils # Basophils # Sodium Potassium Chloride Carbon Dioxide BUN Creatinine Est GFR ( Amer) Est GFR (Non-Af Amer) BUN/Creatinine Ratio Glucose POC Glucose 107 H 118 H Calculated Osmolality Calcium Total Bilirubin Direct Bilirubin Indirect Bilirubin AST ALT Alkaline Phosphatase Serum Total Protein Albumin Globulin Albumin/Globulin Ratio - Impressions ITS Impressions Gallbladder Ultrasound 07/18/18 06:53 IMPRESSION: Cholelithiasis with mild gallbladder wall thickening and possible pericholecystic fluid. There is a negative sonographic Cantu sign. These findings are equivocal for acute cholecystitis. Clinical correlation is advised. No evidence of biliary dilatation. D/ / 07/18/2018 08:33:37 Fantasma Tate MD / bcarter Interpreting Provider: Fantasma Tate MD - Patient Status Disposition: Home, Self-Care Condition: Good Functional capacity at discharge: independent ambulation Overall status at discharge: patient is progressing back to baseline - Discharge Instructions Instructions: Laparoscopic Cholecystectomy (DC), G[place]-P[place] Drain Care (DC) Follow Up With: Trina Beatty MD [Primary Care Provider] - 07/28/18 11:45 am Forms: Inpatient Work/School Release Additional Instructions: General Surgical Discharge Instructions 1. No pushing, pulling, or lifting greater than 15 lbs for 4 weeks (depending upon procedure). 2. You may shower beginning today, but no tub baths, soaking, or swimming for 2 weeks. 3. You may resume driving when you are off narcotics and are safe to react in a car. 4. Take ibuprofen every 8 hours for discomfort. If this does not relieve discomfort, you may take the as needed Percocet. Take narcotics as directed. Do not take more narcotics then directed and do not share your narcotics with an y other person. Do not drink alcohol while on narcotics. 5. Take stool softeners (Colace) or a water based laxative (Miralax) while taking narcotics. You may hold for loose stools. 6. Report any fevers greater than 100.5F, increase abdominal discomfort, drainage that looks like pus, increased redness or pain at the surgical site, or any vomiting. 7. Report any pain in the calves, shortness of breath, or rapid heartbeat. 8. Follow-up in the office as directed. 9. If you were prescribed antibiotics, do not stop them without talking to your provider. Daily BLAS Drain Care: 1. Remove dressings. Shower with antibacterial soap. 2. Do not let the BLAS drain dangle from your body. Use the safety pin to secure to your clothing. Secure the BLAS to a lanyard or other type of long necklace when you shower. 3. Replace drain gauze and taped to secure. 4. Record the output from your BLAS bulb (at least once daily) on the form provided and bring this with you to your follow-up appointment. 5. Keep the BLAS drain to suction (squeeze the bulb and replace the cap while squeezing). 6. Strip the lines twice daily (hold onto the line as close to the body as you can, then with the other hand push the contents of the line into the BLAS bulb). - Diet and Activity Activity: increase activity as tolerated Diet: advance to your usual diet
== END 2018-07-20 12:25 | disposition home or self-care (01) ==
LOC: EMEROOARM 06:33 → 3BNU 06:33
PROVIDERS: ADMIT Surgery; ATTEND Surgery

== ENCOUNTER 2022-01-03 19:26 | Observation (INO) ==
[2022-01-03] MEDS ORDERED: *HR* FentaNYL (PF) 100 MCG/2 ML VIAL IVP ONE (19:53)
[2022-01-03] MEDS ORDERED: Ondansetron 4 MG/2 ML VIAL IVP ONE (20:21)
[2022-01-03 20:28] LABS: Basophils # 0.1 K/mcL (0.0-0.2); Basophils % 1.2 %; Hematocrit 25.9 % (35.3-44.9); Hemoglobin 8.5 g/dL (11.5-15.4); Immature Granulocytes % 20.9 % (0-4); Lymphocytes # 0.4 K/mcL (0.6-4.6); Lymphocytes % 7.5 %; Mean Corpuscular HGB Conc 32.8 g/dL (31.6-35.5); Mean Corpuscular Hemoglobin 29.8 pg (28.0-33.3); Mean Corpuscular Volume 90.9 fL (83.0-100.0); Mean Platelet Volume 11.4 fL (9.4-12.4); Monocytes # 0.7 K/mcL (0.0-1.3); Nucleated Red Blood Cells 9.2 /100 WBC (0); Platelet Count 300 K/mcL (140-400); Red Blood Count 2.85 M/mcL (3.82-4.97); Red Cell Distribution Width 14.1 % (11.5-14.5); Segmented Neutrophils % 58.4 %; White Blood Count 5.9 K/mcL (4.3-11.1)
[2022-01-03 20:30] LABS: Neutrophils # 3.5 K/mcL (1.6-8.9)
[2022-01-03 20:36] LABS: INR 1.1; Prothrombin Time 11.7 Seconds (9.4-12.1)
[2022-01-03 20:39] LABS: Activated Partial Thrombo Time 25.9 Seconds (26.0-36.0)
[2022-01-03 21:05] LABS: Albumin 2.7 g/dL (3.5-5.7); Albumin/Globulin Ratio 0.8 (1.1-2.2); Bilirubin,Direct 0.6 mg/dL (0.0-0.2); Bilirubin,Indirect 0.6 mg/dL (0.0-1.0); Bilirubin,Total 1.2 mg/dL (0.3-1.0); Calcium 8.3 mg/dL (8.6-10.3); Globulin 3.4 g/dL (2.4-3.5); Potassium 6.2 mEq/L (3.5-5.1); Total Protein 6.1 g/dL (6.4-8.9)
[2022-01-03] MEDS ORDERED: Naloxone 0.4 MG/ML INJ IVP PRN (22:43)
[2022-01-03] MEDS ORDERED: Atropine Sulfate 1% 40 DROP/2 ML BOTTLE SL PRN (22:47)
[2022-01-04] MEDS: Morphine Sulfate 2 MG/ML SYRINGE IVP PRN ×6 (00:11→12:55)
[2022-01-04] MEDS: *HR* LORazepam 2 MG/ML VIAL IVP PRN ×4 (01:03→12:55)
[2022-01-04] MEDS: Artificial Tears SOLN 15 ML BOTTLE BOTH EYES SCH ×3 (03:21→13:18)
[2022-01-04 08:28] VITALS: BP 118/66; PULSE 76; TEMP 96.4; O2SAT 99
== END 2022-01-04 13:01 | disposition expired ==
LOC: 2ANU 19:26 → EMEROOARM 19:26 → SUATTDRO 23:06 → 2ANU 23:42
PROVIDERS: ADMIT Internal Medicine; ATTEND Nurse Practitioner